=== PATIENT | male | born 1955 | race Two or more races ===

== ENCOUNTER 2020-08-25 14:59 | Emergency (ER) | payer OTHER, MEDICAID ==
[~2020-08-25] VITALS: Ht 165.1 cm; Wt 74.8 kg
[2020-08-25] MEDS ORDERED: cloNIDine HCL 0.1 MG TAB PO ONE (15:15)
[2020-08-25] MEDS ORDERED: LABETALOL HCL 5 MG/ML 4ML SYRINGE IV ONE (16:15)
[2020-08-25 16:16] LABS: Basophils # (auto) 0 10 ^3/uL (0-0.2); Basophils % (auto) 0.6 % (0.0-2.0); Eosinophils # (auto) 0.2 10 ^3/uL (0-0.8); Eosinophils % (auto) 3.5 % (0.0-7.0); Hematocrit 38.2 % (41.0-53.0); Lymphocytes # (auto) 1.5 10 ^3/uL (0.4-5.4); Lymphocytes % (auto) 21.6 % (10.0-50.0); Mean Corpuscular Hemoglobin 29.5 pg (28.0-32.0); Mean Corpuscular Volume 86.7 fL (80.0-100.0); Monocytes # (auto) 0.6 10 ^3/uL (0-1.3); Monocytes % (auto) 8.2 % (0.0-12.0); Neutrophils # (auto) 4.7 10 ^3/uL (1.6-8.6); Neutrophils % (auto) 66.1 % (37.0-80.0); Nucleated Red Blood Cells % 0.1 %; Platelet Count (auto) 143 10^3/uL (140-450); White Blood Cell 7.1 10^3/uL (4.4-10.8)
[2020-08-25 16:32] LABS: Alanine Aminotransferase 28 U/L (16-61); Albumin 2.9 g/dL (3.4-5.0); Anion Gap 7 (5-15); Aspartate Aminotransferase 17 U/L (15-37); BUN/Creatinine Ratio 21.6; Blood Urea Nitrogen 57 mg/dL (7-18); Calcium 8.2 mg/dL (8.5-10.1); Carbon Dioxide 25 mmol/L (21-32); Chloride 100 mmol/L (98-107); GFR African American 31 mL/min; GFR Non-African American 26 mL/min; Potassium 3.9 mmol/L (3.5-5.1); Sodium 132 mmol/L (136-145)
[2020-08-25 16:37] LABS: Alkaline Phosphatase 220 U/L (45-117); Bilirubin, Total 0.2 mg/dL (0.2-1.0); Total Protein 7.5 g/dL (6.4-8.2)
[2020-08-25 16:54] LABS: Urine Bacteria NONE SEEN /hpf (None Seen); Urine Blood Negative /uL (Negative); Urine Specific Gravity 1.009 (1.001-1.035); Urine WBC 2 /hpf (0 - 3)
[2020-08-25 17:00] LABS: Glucose 464 mg/dL (74-106)
[2020-08-25] MEDS ORDERED: SODIUM CHLORIDE 0.9% 1,000 ML IVB ONE (17:15)
[2020-08-25] MEDS ORDERED: InsuLIN REG 1unit/0.01ml Soln (100units/ml) IV ONE (17:15)
[2020-08-25 19:30] VITALS: BP 139/63
== END 2020-08-25 21:12 | disposition home or self-care (01) ==
LOC: ER 14:59
DX: I10 Essential (primary) hypertension (principal); E11.65 Type 2 diabetes mellitus with hyperglycemia; E11.21 Type 2 diabetes mellitus with diabetic nephropathy; E46 Unspecified protein-calorie malnutrition; Z68.27 Body mass index [BMI] 27.0-27.9, adult; E78.5 Hyperlipidemia, unspecified
CPT/HCPCS: 36415; 71046; 80053; 81001; 84484; 85025; 93005; 96361; 96374; 99285; J1815; J3490; J7030

== ENCOUNTER 2022-08-01 10:18 | Emergency (ER) | payer OTHER, MEDICAID ==
[~2022-08-01] VITALS: Ht 165.1 cm; Wt 77.1 kg
[2022-08-01] MEDS ORDERED: cloNIDine HCL 0.1 MG TAB ONE (10:36)
[2022-08-01] MEDS ORDERED: cloNIDine HCL 0.1 MG TAB PO ONE (10:45)
[2022-08-01 11:34] VITALS: BP 133/39
== END 2022-08-01 11:45 | disposition home or self-care (01) ==
LOC: ER 10:18
DX: I16.0 Hypertensive urgency (principal); I10 Essential (primary) hypertension; E11.9 Type 2 diabetes mellitus without complications; E78.5 Hyperlipidemia, unspecified